=== PATIENT | male | born 1975 | race Two or more races ===

== ENCOUNTER 2023-04-02 14:35 | Outpatient (OUT) | payer BC, SELFPAY ==
[2023-04-02 15:03] LABS: Basophils Percent Auto 0.3 % (0.2-2.0); Eosinophils Absolute Auto 0.2 10^3/uL (0.0-0.7); Eosinophils Percent Auto 2.3 % (0.9-7.0); Hematocrit 40.1 % (42.0-54.0); Hemoglobin 14.3 g/dL (14.0-18.0); Immature Granulocytes Abs Auto 0.02 10^3/uL (0.00-0.03); Immature Granulocytes Pct Auto 0.3 % (0.0-0.5); Lymphocytes Absolute Auto 2.5 10^3/uL (1.2-3.8); Mean Corpuscular HGB Conc 35.7 g/dL (29.9-35.2); Mean Corpuscular Hemoglobin 31.6 pg (25.9-34.0); Mean Corpuscular Volume 88.7 fL (80.0-94.0); Mean Platelet Volume 9.5 fL (9.5-13.5); Monocytes Absolute Auto 0.7 10^3/uL (0.3-0.8); Monocytes Percent Auto 9.9 % (1.7-12.0); Neutrophils Absolute Auto 3.6 10^3/uL (1.4-6.5); Neutrophils Percent Auto 51.2 % (43.0-75.0); Platelet Count 232 10^3/uL (150-450); Red Blood Count 4.52 10^6/uL (4.70-6.10); Red Cell Distribution Width 12.7 % (11.0-15.0)
[2023-04-02 15:16] LABS: Estimated Average Glucose 105 mg/dL; Glycohemoglobin A1C 5.3 % (4.5-6.2)
[2023-04-02 15:29] LABS: Alanine Aminotransferase 42 U/L (16-63); Albumin Globulin Ratio 1.3; Albumin Level 4.2 g/dL (3.4-5.0); Alkaline Phosphatase 70 U/L (46-116); Anion Gap 8.5; Aspartate Amino Transferase <5 U/L (15-37); BUN Creatinine Ratio 14.9; Bilirubin Total 0.6 mg/dL (0.2-1.0); Calcium 8.6 mg/dL (8.5-10.1); Carbon Dioxide 27.3 mmol/L (21.0-32.0); Chloride 102 mmol/L (98-107); Chol HDL Ratio 5.4; Cholesterol 221 mg/dL (<=200); Estimated GFR (African America >60 (>=60); Estimated GFR (Non-African Ame >60 (>=60); Free T3 2.74 pg/mL (2.18-3.98); Globulin 3.3 g/dL; Glucose 89 mg/dL (74-106); HDL Cholesterol 41 mg/dL (40-60); Potassium 3.8 mmol/L (3.5-5.1); Sodium 134 mmol/L (136-145); Thyroid Stimulating Hormone 1.861 uIU/mL (0.358-3.740); Total Protein 7.5 g/dL (6.4-8.2); Triglycerides 166 mg/dL (<=150); VLDL CHOLESTEROL 33.2 mg/dL
[2023-04-02 15:32] LABS: Prostate Specific Antigen Scrn 0.32 ng/mL (<=4.00)
== END 2023-04-02 14:36 | disposition home or self-care (01) ==
LOC: LAB 14:37
PROVIDERS: PCP Family Medicine; Visit Provider Family Medicine
DX: Z00.00 Encounter for general adult medical examination without abnormal findings (principal); Z12.5 Encounter for screening for malignant neoplasm of prostate
CPT/HCPCS: 36415; 80053; 80061; 83036; 84436; 84443; 84481; 85025; G0103

== ENCOUNTER 2025-06-01 11:02 | Outpatient (OUT) | payer BC, SELFPAY ==
--- OUTSIDE RECORDS SUMMARY | 2025-05-20 08:30 | XMS_ITS | Encounter Summary ---
Author Organization [facility] Address [address] [place] [id number] Phone Care Team Providers Care Space Technologist Name Role Phone Bonifacio Wren MD Primary Care Provider [phone] [place] PA-C Unavailable [phone] Reason for Visit * Consultation (Routine) - Pending ReviewSpecialtyDiagnoses / ProceduresReferred By ContactReferred To ContactPhysical Therapy Diagnoses Traumatic complete tear of left rotator cuff, subsequent encounter Procedures Follow [place] [address] Department [place] [address] Phone: tel: fax: Referral IDStatusReasonStart DateExpiration DateVisits RequestedVisits [id number] Encounter Details DateTypeDepartmentCare Team (Latest Contact Info)Ngwumuwtpne77/21/2025 8:30 AM ESTTreatment [facility] [address] [place] [address] Ari Bertrand, PT [address] [facility] [place] [address] Traumatic complete tear of left rotator cuff, subsequent encounter Discharge Disposition: Home Social History Tobacco UseTypesPacks/DayYears UsedDateSmoking Tobacco: FormerCigarettes Smokeless Tobacco: FormerAlcohol UseStandard Drinks/WeekCommentsYes6 (1 standard drink = 0.6 oz pure alcohol)6 pack of beer weeklySex and Gender InformationValue Date RecordedSex Assigned at BirthNot on fileLegal FosFtuf8501/21/2025 2:24 PM EDT Gender IdentityNot on fileSexual OrientationNot on filedocumented as of this encounter Progress Notes * Ari Bertrand, PT - 05/20/2025 8:30 AM EST Patient Name: Tony Deleon Time Calculation Start Time: 830 Stop Time: 912 Time Calculation (min): 42 min PT Therapeutic Procedures Time Entry Therapeutic Exercise Time Entry: 42 Current Problem 1. Traumatic complete tear of left rotator cuff, subsequent encounter Follow Up In Physical Therapy Insurance Visit Count: 11 total today POC Visits: 11/04 Auth Required: NO AUTH REQUIRED FOR OUTPATIENT SERVICES Additional Authorization/Insurance Information: TERESA JOHNMARK 60V PT OT COPAY 0 DED (MET) Subjective General Pt reports he is doing well overall, still dealing with soreness most of his day Precautions Pain 0/10 pain at rest Reports persistent 7-8/10 soreness Objective Treatments: UBE: 3/3 Lvl 2.5 Wall slides: x10 abd Table shoulder flexion stretch: 07m7-1v Wall slide w/ER iso: 2x10 Freemotion tricep pushdown: 2x12 17.5# Freemotion hammer curls: 2x12 15# Pronated shoulder X : 2x10 YTB Prone I: 2x10 3# Prone T: 2x10 BW Seated ER iso: 3x5x5s OP EDUCATION/HEP: No changes to HEP today Assessment Pt with good tolerance to today's session. Appeared to be able to complete repetitions with improved speed/efficiency/comfort overall. Increased weight for several exercises without any adverse effects. Still has soreness overall but less apparent pain throughout exercises today. Recommend continued skilled PT to progress strength and ROM per protocol in order to restore PLOF and facilitate goal achievement. Plan Continue per POC. Progress resistance as tolerated, cont working on periscapular recruitment and general shoulder strength. documented in this encounter Plan of Treatment DateTypeDepartmentCare Team (Latest Contact Info)Cbkxuchuuqi84/25/2026 11:30 AM ESTOffice Visit Jose [facility] [address] [place] [address] [place] [address] [address] Department [place] [address] documented as of this encounter Visit Diagnoses Diagnosis Traumatic complete tear of left rotator cuff, subsequent encounter documented in this encounter Care Teams Team MemberRelationshipSpecialtyStart DateEnd Date Bonifacio Wren MD [address] [place] [address] PCP - GeneralFamily Medicine02/02/25 [place], LUCIANAC [address] [place] [address] Physician AssistantCardiology02/07/25documented as of this encounter
--- OUTSIDE RECORDS SUMMARY | 2025-05-25 11:45 | XMS_ITS | Encounter Summary ---
Author Organization [facility] Address [address] [place] [address] Phone Care Team Providers Care Mathematician Name Role Phone Bonifacio Wren MD Primary Care Provider [phone] [place] PA-C Unavailable [phone] Reason for Visit * ReasonCommentsFollow-up Encounter Details DateTypeDepartmentCare Team (Latest Contact Info)Noskkonqgal88/26/2025 11:45 AM ESTOffice Visit oJse Patricia [facility] [place] [address] [place] [phone] Francisco Harrell MD [id number] Department of Orthopedics [place], [place] [phone] Traumatic complete tear of left rotator cuff, initial encounter (Primary Dx) Social History Tobacco UseTypesPacks/DayYears UsedDateSmoking Tobacco: FormerCigarettes Smokeless Tobacco: FormerAlcohol UseStandard Drinks/WeekCommentsYes6 (1 standard drink = 0.6 oz pure alcohol)6 pack of beer weeklySex and Gender InformationValue Date RecordedSex Assigned at BirthNot on fileLegal GmhHbuk3701/21/2025 2:24 PM EDT Gender IdentityNot on fileSexual OrientationNot on filedocumented as of this encounter Progress Notes * Francisco Harrell MD - 05/25/2025 11:45 AM EST History: Patient returns to the office status post L RCR 3 months ago. Patient has been working with therapy and pain is well controlled. Denies numbness/tingling. Past medical history, past surgical history, medications, allergies, family history, social history, and review of systems were reviewed today and have been documented separately in this encounter. A 12 point review of systems was negative other than as stated in the HPI. Physical Examination: On exam of the left upper extremity, incisions are well healed, without significant erythema or drainage. Demonstrates full ROM of the elbow/wrist/hand. Neurovascularly intact throughout. AROM of theshoulder today to FF 90, PROM FF 160. Assessment: 3 months s/p L RCR Plan: Patient progressing as expected after recent surgery. Continue to work with PT. Work on aggressive ROM. We will see them back around 6 months postoperatively. All questions answered. Tentative return to work on 06/15/25 Cashier Live software was used to dictate this note, please be aware that minor errors in knitting supervisor may be present. Francisco Harrell MD Resume Writer Shoulder/Elbow Surgery [facility] IRENE documented in this encounter Plan of Treatment DateTypeDepartmentCare Team (Latest Contact Info)Odlbwxqhtnp04/25/2026 11:30 AM ESTOffice Visit [facility] [address] [facility] [address] [place] [address] [place] [address] [facility] Department [place] [address] documented as of this encounter Visit Diagnoses Diagnosis Traumatic complete tear of left rotator cuff, initial encounter- Primary documented in this encounter Care Teams Team MemberRelationshipSpecialtyStart DateEnd Date Bonifacio Wren MD [address] [place] [address] PCP - GeneralFamily Medicine02/02/25 [place] PA-C [address] [place] [address] Physician AssistantCardiology02/07/25documented as of this encounter
--- OUTSIDE RECORDS SUMMARY | 2025-06-01 11:06 | XMS_ITS | Clinical Summary ---
Author Organization [facility] Address [address] [place] [address] Phone Care Team Providers Care Skirt Clipper Name Role Phone Bonifacio Wren MD Primary Care Provider [phone] [place] PA-C Unavailable [phone] Allergies No known active allergies Medications MedicationSigDispense QuantityRefillsLast FilledStart DateEnd DateStatus lisinopril 20 mg tablet Take 1 tablet (20 mg) by mouth once daily.Active sildenafil (Viagra) 100 mg tablet TAKE 1 TABLET BY MOUTH NEEDED ONCE EVERY 3 DAYS5Active Active Problems ProblemNoted DateDiagnosed DateChronic left shoulder pain04/29/2025Preop cardiovascular exam02/07/2025nterior dislocation of left /05/2025 Traumatic complete tear of left rotator cuff02/01/2025Labral tear of shoulder, left, initial /05/2025 Encounters DateTypeDepartmentCare AsxdUbhlwczxkof89/26/2025 11:45 AM ESTOffice Visit Jose Patricia [address] [place] [address] Francisco Harrell MD Traumatic complete tear of left rotator cuff, initial encounter (Primary Dx) 05/25/20252836Iggbyw50/21/2025 8:30 AM ESTTreatment [facility] [address] [place] [address] Ari Bertrand PT Traumatic complete tear of left rotator cuff, subsequent encounter Discharge Disposition: Home05/20/20257649Ixcfve83/18/2025 8:30 AM ESTTreatment [facility] [address] [facility] [place] [address] Ari Bertrand, PT Traumatic complete tear of left rotator cuff, subsequent encounter Discharge Disposition: Home05/17/20253006Kcegkp99/14/2025 8:30 AM ESTTreatment [facility] [address] [facility] [place] [address] Ari Bertradn, PT Traumatic complete tear of left rotator cuff, subsequent encounter Discharge Disposition: Home05/13/20251173Amzpsn03/05/2025 8:30 AM ESTTreatment [facility] [address] [place] [address], [place] [address] Luis Mike, ASSISTANT CITY ATTORNEY Traumatic complete tear of left rotator cuff, subsequent encounter Discharge Disposition: Home05/04/20255465Cewuuk07/03/2025 7:45 AM ESTTreatment [facility] [address] [place] [address], [place] [address] Luis Mike, ASSISTANT [employer] ATT[employer] Traumatic complete tear of left rotator cuff, subsequent encounter Discharge Disposition: Home05/02/20252368Yvfzyl89/31/2025 8:30 AM EDTTreatment [facility] [address] [facility] [place] [address] Edwar Blair, PT Chronic left shoulder pain (Primary Dx); Anterior dislocation of left shoulder, subsequent kauprsywq41/31/2025Travel 04/12/2025 11:30 AM EDTTreatment [facility] [address] [facility] [place] [address] Ari Bertrand, PT Traumatic complete tear of left rotator cuff, subsequent encounter Discharge Disposition: Home04/12/20256886Gukstm33/10/2025 11:30 AM EDTTreatment [facility] [address] [place] [facility] [place] [address] Ari Bertrand, PT Traumatic complete tear of left rotator cuff, subsequent encounter Discharge Disposition: Home04/08/20254255Gntacv87/07/2025 11:30 AM EDTTreatment [facility] [address] [place] [address] Ari Bertrand, PT Traumatic complete tear of left rotator cuff, subsequent encounter Discharge Disposition: Home04/05/20254692Ybwukw50/24/2025 11:45 AM EDTOffice Visit Josemagda [facility] [address] [place] [address] Francisco Harrell MD Traumatic complete tear of left rotator cuff, initial encounter (Primary Dx); Anterior dislocation of left shoulder, initial fbireceui71/23/2025 10:45 AM EDT Treatment [facility] [address] [place] [address], [place] [address] Ari Bertrand, PT Traumatic complete tear of left rotator cuff, subsequent encounter Discharge Disposition: Home03/22/20251883Frzrxw11/16/2025 11:30 AM EDTTreatment [facility] [address] [facility] [place] [address] Ari Bertrand, PT Traumatic complete tear of left rotator cuff, subsequent encounter Discharge Disposition: Home03/15/20253515Axvvqs19/08/2025 2:45 PM EDTEvaluation [facility] [address] [place], [place] [address] [place] [address] Ari Bertrand, PT Traumatic complete tear of left rotator cuff, subsequent encounter (Primary Dx) Discharge Disposition: Home03/07/2025Travelfrom Last 3 Months Social History Tobacco UseTypesPacks/DayYears UsedDateSmoking Tobacco: FormerCigarettes Smokeless Tobacco: Former Tobacco Cessation:Counseling Given: Not Answered Alcohol UseStandard Drinks/WeekCommentsYes6 (1 standard drink = 0.6 oz pure alcohol)6 pack of beer weeklySex and Gender InformationValueDate RecordedSex Assigned at BirthNot on fileLegal OssIcnh47/ 2:24 PM EDTGender Identity Not on fileSexual OrientationNot on file Last Filed Vital Signs Vital SignReadingTime TakenCommentsBlood Rwzvajss332/9202/10/2025 11:09 AM EDT Bkvus664602/10/2025 11:09 AM CBBCuyrusaqnga98.6 ??C (97.9 ??F)02/10/2025 11:09 AM EDTRespiratory Tokp419202/10/2025 11:09 AM EDTOxygen Mmtuigppgw76%02/10/2025 11:09 AM EDTInhaled Oxygen Concentration--Bscqxv582 kg (236 lb 11.2 oz)02/10/2025 8:11 AM XECGukwsp370.7 cm (5' 8 )02/10/2025 8:11 AM EDTBody Mass Index35.9902/10/2025 8:11 AM EDT Plan of Treatment DateTypeDepartmentCare Team (Latest Contact Info)Oidjchwmjee33/25/2026 11:30 AM ESTOffice Visit [facility] [address] [place] [address] [place] [address] [address] [facility] [place] [address] Health MaintenanceDue DateLast DoneCommentsCT Evoamkwcdikh76/11/1976Colonoscopy 1975Colorectal Cancer Esrzjlzsc83/11/1976FIT-DNA (Cologuard)1975FIT 1975HIV Kumpnkkxy99/11/1976Lipid Panel1975 4316Bhpcxmyndrpby65/11/1976 Yearly Adult Ztxoeymt11/11/1976MMR Vaccines (1 of 1 - Standard series)1976 Hepatitis C Vcsfbjofp23/11/1994Hepatitis B Vaccines (1 of 3 - 19+ 3-dose series) 1994DTaP/Tdap/Td Vaccines (2 - Td or Tdap)/Influenza Vaccine (#1)5COVID-19 Vaccine (1 - season)2025Zoster Vaccines (1 of 2)2025HIB VaccinesAged OutNo longer eligible based on patient's age to complete this topicHPV VaccinesAged OutNo longer eligible based on patient's age to complete this topicHepatitis A VaccinesAged OutNo longer eligible based on patient's age to complete this topicIPV VaccinesAged OutNo longer eligible based on patient's age to complete this topicMeningococcal VaccineAged OutNo longer eligible based on patient's age to complete this topic Pneumococcal Vaccine: Pediatrics and At-Risk Adult PatientsAged OutNo longer eligible based on patient's age to complete this topicRotavirus VaccinesAged Out No longer eligible based on patient's age to complete this topic Medical Devices ImplantedTypeAreaManufacturerDevice IdentifierShelf Expiration DateModel / Serial / LotDental ImplantDental ImplantN/A: Mouth/ [id number] / Cunningham, Fibertak, W/ Two 1.3mm Suture Tape, (/Bl/ & /Blk - [id number] Implanted:Qty: 1 on 02/10[facility]20[facility]: ShoulderARTHREX [id number]/[id number] / / [id number], Fibertak, W/ Two 1.3mm Suture Tape, (/Bl/ & /Blk - [id number] Implanted:Qty: 1 on 02/10/2025 by [facility]plantLeft: ShoulderARTHREX [id number]/31/2029AR-3632SP / / [id number] X 24.5mm Biocomposite Swivelock Sp Knotless Cunningham W/ No. 2 Suture (Blue), Self-Punching Peek Eyelet Implanted:Qty: 1 on 02/10/2025 by [facility]: ShoulderARTHREX INC04/[id number] / NA / [id number] X 24.5mm Biocomposite Swivelock Sp Knotless Cunningham W/ No. 2 Suture (Blue), Self-Punching Peek Eyelet Implanted:Qty: 1 on 02/10/2025 by [facility]: ShoulderARTHREX [id number] [facility] / NA / [id number] Insurance Advance Directives For more information, please contact: [phone] (Available ) * Full Code (Latest Code Status on File) Date ActivatedDate InactivatedComments02/10/2025 7:33 AMQuestionAnswerComments Plan of Care:* Code Status Discussion Completed Decision Maker:* Patient Care Teams Team MemberRelationshipSpecialtyStart DateEnd Date Bonifacio Wren MD [address] [facility] [place] [address] PCP - GeneralFamily Medicine02/02/25 Van Ward PA-C [address] [place] [address] Physician AssistantCardiology02/07/25
--- OUTSIDE RECORDS SUMMARY | 2025-06-01 11:06 | XMS_ITS | Encounter Summary ---
Author Organization [facility] Address [address] [place] [address] Phone Care Team Providers Care Pinball Machine Repairer Name Role Phone Bonifacio Wren MD Primary Care Provider [phone] Van Ward PA-C Unavailable [phone] Encounter Details DateTypeDepartmentCare Team (Latest Contact Info)Krftzgwhzmy58/26/2025Travel Social History Tobacco UseTypesPacks/DayYears UsedDateSmoking Tobacco: FormerCigarettes Smokeless Tobacco: FormerAlcohol UseStandard Drinks/WeekCommentsYes6 (1 standard drink = 0.6 oz pure alcohol)6 pack of beer weeklySex and Gender InformationValue Date RecordedSex Assigned at BirthNot on fileLegal ZbyJywj9401/21/2025 2:24 PM EDT Gender IdentityNot on fileSexual OrientationNot on filedocumented as of this encounter Plan of Treatment DateTypeDepartmentCare Team (Latest Contact Info)Rnegcugyudm18/25/2026 11:30 AM ESTOffice Visit Jose Patricia [address] [place] [address] [place] [address] [address] Department of Orthopedics [place], [place] [address] documented as of this encounter Visit Diagnoses Not on filedocumented in this encounter Care Teams Team MemberRelationshipSpecialtyStart DateEnd Date Bonifacio Wren MD [address] [place] [address] PCP - GeneralFamily Medicine02/02/25 Van Ward PA-C [address] [place] [address] Physician AssistantCardiology02/07/25documented as of this encounter
--- OUTSIDE RECORDS SUMMARY | 2025-06-01 11:06 | XMS_ITS | Encounter Summary ---
Author Organization [facility] Address [address] [place] [address] Phone Care Team Providers Care Fiber Drier Operator Name Role Phone Bonifacio Wren MD Primary Care Provider [phone] [place] PA-C Unavailable [phone] Encounter Details DateTypeDepartmentCare Team (Latest Contact Info)Koarhtvwwwg72/21/2025Travel Social History Tobacco UseTypesPacks/DayYears UsedDateSmoking Tobacco: FormerCigarettes Smokeless Tobacco: FormerAlcohol UseStandard Drinks/WeekCommentsYes6 (1 standard drink = 0.6 oz pure alcohol)6 pack of beer weeklySex and Gender InformationValue Date RecordedSex Assigned at BirthNot on fileLegal LshHeoj1101/21/2025 2:24 PM EDT Gender IdentityNot on fileSexual OrientationNot on filedocumented as of this encounter Plan of Treatment DateTypeDepartmentCare Team (Latest Contact Info)Avatzmmennc94/25/2026 11:30 AM ESTOffice Visit Jose Patricia [address] [place] [address] [place] [address] [address] Department of Orthopedics [place], [place] [address] documented as of this encounter Visit Diagnoses Not on filedocumented in this encounter Care Teams Team MemberRelationshipSpecialtyStart DateEnd Date Bonifacio Wren MD [address] [facility] [place] [address] PCP - GeneralFamily Medicine02/02/25 [place] PA-C [address] [place] [address] Physician AssistantCardiology02/07/25documented as of this encounter
[2025-06-01 11:35] LABS: Hematocrit 45.6 % (42.0-54.0); Hemoglobin 15.8 g/dL (14.0-18.0); Immature Granulocytes Abs Auto 0.01 10^3/uL (0.00-0.03); Immature Granulocytes Pct Auto 0.1 % (0.0-0.5); Lymphocytes Absolute Auto 3.4 10^3/uL (1.2-3.8); Mean Corpuscular HGB Conc 34.6 g/dL (29.9-35.2); Mean Corpuscular Hemoglobin 30.5 pg (25.9-34.0); Mean Corpuscular Volume 88.0 fL (80.0-94.0); Platelet Count 261 10^3/uL (150-450); Red Blood Count 5.18 10^6/uL (4.70-6.10); White Blood Count 9.7 10^3/uL (4.0-11.0)
[2025-06-01 12:01] LABS: Alanine Aminotransferase 31 U/L (16-63); Albumin Globulin Ratio 1.2; Albumin Level 4.3 g/dL (3.4-5.0); Alkaline Phosphatase 87 U/L (46-116); Anion Gap 14.9; Aspartate Amino Transferase 10 U/L (15-37); Blood Urea Nitrogen 18.0 mg/dL (7.0-18.0); Calcium 8.9 mg/dL (8.5-10.1); Carbon Dioxide 23.3 mmol/L (21.0-32.0); Chloride 104 mmol/L (98-107); Cholesterol 240 mg/dL (<=200); Estimated GFR (African America >60 (>=60 mL/min/1.73m^2); Estimated GFR (Non-African Ame >60 (>=60 mL/min/1.73m^2); Free T3 2.56 pg/mL (2.18-3.98); Globulin 3.5 g/dL; Glucose 105 mg/dL (74-106); HDL Cholesterol 30 mg/dL (40-60); Potassium 4.2 mmol/L (3.5-5.1); Sodium 138 mmol/L (136-145); Thyroid Stimulating Hormone 1.255 uIU/mL (0.358-3.740); Total Protein 7.8 g/dL (6.4-8.2); Triglycerides 352 mg/dL (<=150); Uric Acid 5.9 mg/dL (3.5-7.2); VLDL CHOLESTEROL 70.4 mg/dL
== END 2025-06-01 11:03 | disposition home or self-care (01) ==
LOC: LAB 11:04
PROVIDERS: PCP Family Medicine; Visit Provider Family Medicine
DX: Z00.00 Encounter for general adult medical examination without abnormal findings (principal); Z12.5 Encounter for screening for malignant neoplasm of prostate
CPT/HCPCS: 36415; 80053; 80061; 83036; 83525; 84436; 84443; 84481; 84550; 85025; G0103